=== PATIENT | male | born 1960 ===

== ENCOUNTER 2018-02-23 19:05 | Emergency (ER) | payer OTHER ==
[2018-02-23 19:20] VITALS: RESP 16; TEMP 98.2
--- NOTE | 2018-02-23 19:35 | C.PDOC ---
History Of Present Illness 57 y/o male presents to the ER complaining of left lateral rib discomfort which began today. Patient denies having trauma and injuries. Of note, patient states that he drank ETOH today. Time Seen by Provider: 02/23/18 19:32 Chief Complaint (Nursing): Chest Pain History Per: Patient History/Exam Limitations: no limitations Onset/Duration Of Symptoms: Hrs Current Symptoms Are (Timing): Still Present Severity: Moderate Past Medical History Reviewed: Historical Data, Nursing Documentation, Vital Signs Vital Signs: Last Vital Signs Temp 98.2 F 02/23/18 19:15 Pulse 76 02/23/18 19:53 Resp 16 02/23/18 19:53 BP 114/63 02/23/18 19:53 Pulse Ox 99 02/23/18 19:53 - Medical History PMH: Emphysema, Hypercholesterolemia Surgical History: No Surg Hx Family History: States: No Known Family Hx - Social History Hx Alcohol Use: Yes Hx Substance Use: No - Immunization History Hx Tetanus Toxoid Vaccination: No Hx Influenza Vaccination: No Hx Pneumococcal Vaccination: No Review Of Systems Except As Marked, All Systems Reviewed And Found Negative. Constitutional: Negative for: Fever, Chills Musculoskeletal: Positive for: Other (rib pain) Physical Exam - Physical Exam Appears: Non-toxic, No Acute Distress Skin: Normal Color, Warm, Dry Head: Atraumatic, Normacephalic Eye(s): bilateral: Normal Inspection Nose: Normal Oral Mucosa: Moist Neck: Supple Chest: Symmetrical, Tenderness (tenderness to left lateral ribs T4- T5 mid- axillary line), Other (no bruising, no rash, no deformity) Cardiovascular: Rhythm Regular Respiratory: Normal Breath Sounds, No Rales, No Rhonchi, No Wheezing Gastrointestinal/Abdominal: Normal Exam, Soft, No Tenderness, No Guarding, No Rebound Neurological/Psych: Oriented x3, Normal Speech ED Course And Treatment ECG: Interpreted By Me ECG Rhythm: Sinus Rhythm ECG Interpretation: Normal Rate From EC O2 Sat by Pulse Oximetry: 97 (RA) Pulse Ox Interpretation: Normal Progress Note: EKG ordered. Patient treated with Motrin PO. Medical Decision Making Medical Decision Making: L intercostal discomfort, mid-axillary line pt does not recall acute injury but always laying on L side + etoh may obscure no cardiac s/s, normal EKG, digitally and positionally reproducable c/w costochondritis. Disposition Doctor Will See Patient In The: Office Counseled Patient/Family Regarding: Studies Performed, Diagnosis - Disposition Referrals: Alcoholics Anonymous [Outside] [facility] [Outside] [facility] [Outside] [facility] [Outside] Disposition: HOME/ ROUTINE Disposition Time: 19:35 Condition: GOOD Additional Instructions: Costochondritis ice packs to the affected area 1/2 hour per hour, nothing hot Motrin/Advil 600 mg every 6 hours as needed no heavy lifting for 1 week Alcohol abuse: Seek AA as indicated. Instructions: Costochondritis Forms: [facility] (Georgian) - Clinical Impression Clinical Impression: Chest wall discomfort - Scribe Statement The provider has reviewed the documentation as recorded by the Lindaibtanisha Marie Provider Attestation: All medical record entries made by the Scribe were at my direction and personally dictated by me. I have reviewed the chart and agree that the record accurately reflects my personal performance of the history, physical exam, medical decision making, and the department course for this patient. I have also personally directed, reviewed, and agree with the discharge instructions and disposition.
[2018-02-23 19:54] VITALS: BP 114/63; PULSE 76
[2018-02-23 20:38] VITALS: O2SAT 97
--- NOTE | 2018-02-24 19:50 | CARD ---
APPROVED REPORT Date of service: 02/23/2018 EKG Measurement Heart [id number] <Conclusion> Normal sinus rhythm Normal ECG
== END 2018-02-23 19:54 | disposition home or self-care (01) ==
LOC: C.ER 19:05
DX: R07.89 Other chest pain (principal); E78.00 Pure hypercholesterolemia, unspecified; J43.9 Emphysema, unspecified